=== PATIENT | female | born 1990 | race Caucasian/White ===

== ENCOUNTER → 2017-12-02 09:59 | Outpatient (CLI) | payer OTHER, SELFPAY ==
[2017-12-02 10:42] LABS: Absolute Lymphocyte Count 1.75 X10^3/ul (0.83-4.51); Absolute Neutrophil Count 7.6 X10^3/uL (2.0-7.7); Basophil# 0.02 X10^3/uL; Basophil% 0.2 % (0-1); Hematocrit 44.2 % (37-47); Hemoglobin 15.1 g/dl (12.0-15.0); Lymphocyte # 1.75 X10^3/ul (4.0); Lymphocyte % 17.2 % (19-41); Mean Corp Hgb Conc 34.2 g/gl (32-36); Mean Corpuscular Hgb 31.5 pg (27.0-32.0); Mean Corpuscular Volume 92.1 fL (81-99); Mean Platelet Vol. 10.4 fl (6.2-12.0); Monocyte# 0.71 X10^3/uL; Neutrophil # 7.58 X10^3/uL (2.7-7.7); Neutrophil % 74.3 % (47-70); Platelet Count 241 K/mm3 (150-450); RBC Distribution Width CV 12.6 % (11.6-14.6); RBC Distribution Width SD 41.5 fl (35.1-43.9); White Blood Count 10.2 K/mm3 (4.4-11.0)
[2017-12-02 10:43] LABS: POSITIVE COUNT NO; POSITIVE DIFFERENTIAL NO; POSITIVE MORPHOLOGY NO
[2017-12-02 11:53] LABS: HIV - WCH Non-Reactive (Nonreactive)
[2017-12-02 17:08] LABS: Chlamydia Trachomatis by PCR Negative (Negative); Neisserai gonorrhoeae by PCR Negative (Negative); Probe Check PASS; Sample Adequacy Control PASS; Specimen Processing Control PASS
[2017-12-03 09:23] LABS: HEPATITIS B SURFACE AG Negative (Negative)
[2017-12-06 03:11] LABS: Rapid Plasmin Reagin (RPR) NONREACTIVE (NONREACTIVE)
== END ==
PROVIDERS: Family Provider Family Medicine; PCP Family Medicine; Visit Provider Obstetrics & Gynecology
DX: Z34.90 Encounter for supervision of normal pregnancy, unspecified, unspecified trimester (principal)
CPT/HCPCS: 36415; 85025; 86592; 86703; 86762; 86850; 86900; 87086; 87088; 87340; 87491; 87591

== ENCOUNTER → 2018-01-13 18:02 | Outpatient (CLI) | payer OTHER, SELFPAY ==
[2018-01-13 18:31] LABS: Protein, Urine (Random) < 6.0 mg/dL (<11.9); Protein:Creat Ratio 130 mg/g CRE (0-200)
== END ==
PROVIDERS: Family Provider Family Medicine; PCP Family Medicine; Visit Provider Obstetrics & Gynecology
DX: I10 Essential (primary) hypertension (principal)
CPT/HCPCS: 82570; 84156

== ENCOUNTER → 2018-01-28 17:31 | Outpatient (CLI) | payer OTHER, SELFPAY | PROVIDERS: Family Provider Family Medicine; PCP Family Medicine; Visit Provider Obstetrics & Gynecology | DX: N89.8 Other specified noninflammatory disorders of vagina (principal) | CPT/HCPCS: 87070; 87205 ==

== ENCOUNTER → 2018-02-25 12:10 | Outpatient (CLI) | payer OTHER, SELFPAY ==
--- NOTE | 2018-02-25 12:11 | US_ITS ---
STUDY: SECOND AND THIRD TRIMESTER OBSTETRICAL ULTRASOUND REASON FOR EXAM: Female, 27 years old. Complete 2nd trimester obstetrical ultrasound with anatomy survey and biometrics LMP: 10/08/2017. GA (LMP) 20 week 0 day with MARLON (LMP) 07/15/2018. TECHNIQUE: Transabdominal complete ultrasound. PRIOR ULTRASOUND: None. FINDINGS: Single live intrauterine gestation in breech presentation with cardiac rate 136 bpm and normal amniotic fluid index with a deepest vertical pocket of 6.1 cm. Cervical length is 3.5 cm, closed. Placenta is anterior not low-lying, grade 0. Survey of the adnexa reveals no acute abnormalities. BIOMETRY: Measurement and centimeters. BPD: 4.24: 18 weeks, 6 days HC: 16.68: 19 weeks, 3 days AC: 14.98: 20 weeks, 2 days FL: 3.2: 20 weeks, 0 days CI: 70% FL/BPD: 75% FL/AC: 21% HC/AC: age by current US: 19 weeks, 5 days. MARLON by current US: 07/17/2018. Estimated weight: 325 grams, +/- 48 grams, 44 %. ANATOMY: The anatomy survey is complete and considered satisfactory. Gender: Not determined Cranium: Normal lateral ventricles. Normal choroid plexus. Normal cerebellum. Normal cisterna magna. Normal face, nose and lips. Chest: Normal 4-chamber heart. Abdomen/Pelvis: Normal diaphragm. Normal stomach. Normal abdominal wall. Normal cord insertion. Normal 3 vessel cord. Normal kidneys. Normal bladder. Spine: Normal cervical spine. Normal thoracic spine. Normal lumbar spine. Normal sacrum. Extremities: Normal bilateral upper extremities. Normal bilateral lower extremities. US/OB Anatomy Scan IMPRESSION: Single live intrauterine gestation. No acute or maternal abnormality is evident. Satisfactory and normal anatomic survey. Ultrasound age 19 week 5 day gestation, with MARLON 07/17/2018. Closely concordant with expected dates. Electronically Signed: Marko Hill, at 18:27 EDT Tel , Service support ,
== END ==
PROVIDERS: Family Provider Family Medicine; PCP Family Medicine; Visit Provider Obstetrics & Gynecology
DX: Z34.01 Encounter for supervision of normal first pregnancy, first trimester (principal)
CPT/HCPCS: 76805

== ENCOUNTER → 2018-04-24 11:57 | Outpatient (CLI) | payer OTHER, SELFPAY ==
[2018-04-24 13:04] LABS: Absolute Neutrophil Count 9.6 X10^3/uL (2.0-7.7); Basophil# 0.05 X10^3/uL; Basophil% 0.4 % (0-1); Eosinophil# 0.22 X10^3/uL; Eosinophils% 1.6 % (0-5); Hematocrit 39.1 % (37-47); Hemoglobin 13.1 g/dl (12.0-15.0); Lymphocyte % 17.8 % (19-41); Mean Corp Hgb Conc 33.5 g/gl (32-36); Mean Corpuscular Hgb 31.4 pg (27.0-32.0); Mean Corpuscular Volume 93.8 fL (81-99); Mean Platelet Vol. 9.9 fl (6.2-12.0); Monocyte# 0.93 X10^3/uL; Monocyte% 6.9 % (0-10); Neutrophil # 9.58 X10^3/uL (2.7-7.7); Neutrophil % 70.8 % (47-70); Platelet Count 249 K/mm3 (150-450); RBC Distribution Width CV 12.9 % (11.6-14.6); Red Blood Count 4.17 M/mm3 (4.2-5.4); White Blood Count 13.5 K/mm3 (4.4-11.0)
[2018-04-24 13:07] LABS: POSITIVE COUNT YES; POSITIVE DIFFERENTIAL NO; POSITIVE MORPHOLOGY YES
[2018-04-24 13:24] LABS: Glucose Challenge Gest 1H 50g 74 mg/dL (70-140)
[2018-04-25 15:19] LABS: Pathologist Review Reviewed
== END ==
PROVIDERS: Nurse Practitioner Women's Health; Family Provider Family Medicine; PCP Family Medicine; Referring Provider Obstetrics & Gynecology; Visit Provider Obstetrics & Gynecology
DX: Z34.01 Encounter for supervision of normal first pregnancy, first trimester (principal)
CPT/HCPCS: 36415; 82950; 85025

== ENCOUNTER → 2018-06-18 16:54 | Outpatient (CLI) | payer OTHER, SELFPAY ==
[2018-06-18 08:47] VITALS: BMI 34.8
--- OUTSIDE RECORDS SUMMARY | 2018-08-14 03:05 | XMS RPT_ITS ---
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 09/09/2017 Secondary NOT GIVENUNK [place] Insurance:SELF PAY [facility] Number: Effective Repository Date:2017-09-09
== END ==
PROVIDERS: Family Provider Family Medicine; PCP Family Medicine; Referring Provider Obstetrics & Gynecology; Visit Provider Obstetrics & Gynecology
DX: Z34.90 Encounter for supervision of normal pregnancy, unspecified, unspecified trimester (principal)
CPT/HCPCS: 87081

== ENCOUNTER 2018-07-21 08:35 | Inpatient (IN) | payer OTHER, SELFPAY ==
[2018-06-18 08:47] VITALS: BMI 34.8
[2018-07-18 09:27] VITALS: BMI 34.8
[2018-07-21 08:29] VITALS: BMI 36.2
[2018-07-21 08:35] LABS: ROM Internal Control Test YES-OK TO RESULT pt. (Internal QC); ROM Patient Test POSITIVE (Negative)
[2018-07-21 10:01] LABS: Hematocrit 42.5 % (37-47); Mean Corp Hgb Conc 32.9 g/gl (32-36); Mean Corpuscular Hgb 30.4 pg (27.0-32.0); Mean Corpuscular Volume 92.4 fL (81-99); Mean Platelet Vol. 9.5 fl (6.2-12.0); Platelet Count 244 K/mm3 (150-450); RBC Distribution Width CV 14.2 % (11.6-14.6); RBC Distribution Width SD 48.1 fl (35.1-43.9); White Blood Count 15.3 K/mm3 (4.4-11.0)
[2018-07-21 10:02] LABS: Scan Indicated on CBC? Y/N NO
[2018-07-21] MEDS: Lactated Ringers 1,000 ML 50 ML IV (10:25)
[2018-07-21] MEDS: Oxytocin 30 units/NS 500 ml 30 UNITS/500 ML IV.SOLN IV (10:59)
[2018-07-21] MEDS: fentaNYL-bupivacaine (epidural) 100 ML BAG EPIDURAL (12:34)
--- NOTE | 2018-07-21 14:34 | PCM.HP.OB ---
- Problem List (1) PROM (premature rupture of membranes) Status: Acute (2) Status: Acute Qualifiers: Comment: anatomy scan normal. (3) Supervision of normal Status: Acute Qualifiers: Comment: PRR MARLON 07/16/18 [place]; declines genetic screen History Date of Admission: 07/21/18 Final MARLON: 07/16/18 Gestational age: 40 Weeks and 5 Days History of this : This is a 27 year-old, at 40 weeks gestational age presents with SROM clear fluid this morning but minimal contractions. she has had some bloody show Medical History: Medical History (Last Reviewed 07/18/18 @ 09:27 by Meeta Rasheed) left achilles tendon tear Surgical History: Surgical History (Last Reviewed 07/18/18 @ 09:27 by Meeta Rasheed) S/P tonsillectomy Z90.89 left achilles tendon repair Allergies No Known Allergies Allergy (Verified 07/21/18 08:32) Home Medications: Home Medications vitamin,calcium,dqjvkrln-bxxa-dtaxg acid tablet 1 tab PO QDAY 12/02/17 Smoking Status: Never smoker Alcohol: None Number of Fetus(es): 1 Heart Tracin moderate variability reactive no decels cat I TOCO Analysis: irregular History Past Pregnancies: Past Pregnancies primigravid Labs: Mom's Labs & Results 07/21/18 07/21/18 07/21/18 08:20 09:46 09:46 WBC 15.3 H RBC 4.60 Hgb 14.0 Hct 42.5 MCV 92.4 MCH 30.4 MCHC 32.9 RDW 14.2 RDW Differential 48.1 H Plt Count 244 MPV 9.5 Vag Amniotic Fld Detect POSITIVE H Blood Type A POSITIVE Antibody Screen NEGATIVE Course Did the patient receive Yes care? Labs Blood Type: A RH: POSITIVE RPR/VDRL/Syphilis Nonreactive Rubella status Immune HbSAg Negative Date Done: 12/02/17 Chlamydia Negative Gonorrhea Negative HIV/AIDS Non-Reactive Group B Strep: Negative Current Obstetrical History Gestational Diabetes No Incompetent Cervix No Infertility No IUGR No Macrosomia No Hypertension/Pre-eclampsia No Placenta Previa/Abruption No PTL/PROM No Uterine anomaly No Oligohydramnios No Polyhydramnios No Multiple gestation No Past Medical History Asthma No Diabetes No Hypertension No Heart disease No Mitral valve prolapse No Neurologic/Seizure disorder/ No Migraines Kidney disease No Liver disease No Varicosities No Clotting disorders/Hx of DVT No Thyroid Dysfunction No Other medical diseases No Psychiatric disorders No Major trauma No Abnormal PAP smear No Sleep apnea No Mammogram in the last 2 years No Social History Marital Status: Alleged father [place] Hx Smoking No Smoking Status Never smoker Expected Delivery Method: Spontaneous Vaginal Review of Systems Constitutional: Denies: Fever, Malaise Eyes: Denies: Blurred vision, Vision Change HEENT: Denies: Head Aches, Visual Changes Cardiovascular: Denies: Chest Pain, Palpitations Respiratory: Denies: Cough, Shortness of Breath, Wheezing Gastrointestinal: Denies: Abdominal Pain, Diarrhea, Nausea, Vomiting Genitourinary: Denies: Dysuria, Hematuria Musculoskeletal: Denies: Joint Pain, Muscle pain Skin: Denies: Lesions, Rash Neurological: Denies: Blurred vision, Focal weakness, Headaches Psychiatric: Denies: Anxiety, Depression Endocrine: Denies: Heat/ Cold Intolerance Hematologic/ Lymphatic: Denies: Easy Bruising, Easy Bleeding Physical Exam General: Alert, Cooperative, No apparent distress HEENT: Atraumatic, Normocephalic. Negative for: Thyromegaly, Lymphadenopathy Cardiovascular: Regular rate Lungs: Normal air movement Abdomen: Soft, Non Tender, Gravid Neurological: Deep Tendon Reflexes 2+/4 and Symmetrical, Neuro grossly intact. Negative for: Clonus [employer]: Normal external genitalia. Negative for: Vulvar lesions Estimated gestational size: Appropriate for gestational size Presentation: Cephalic Assessment/Plan All Active Problems (Last Reviewed 07/18/18 @ 09:27 by Meeta Rasheed) PROM (premature rupture of membranes) (Acute) (Acute) Supervision of normal (Acute) This is a 27 year-old, at 40 weeks gestational age presents SROM Patient presents with SROM, minimal contractions recommend Pitocin since no cervical change in 4 hours. Pain management: Plans epidural needed. GBS negative. Management of any complications: None I have reviewed the [facility] and made any clinically relevant updates.
--- NOTE | 2018-07-21 14:37 | HP.PCM_ITS ---
- Problem List (1) PROM (premature rupture of membranes) Status: Acute (2) Status: Acute Qualifiers: Comment: anatomy scan normal. (3) Supervision of normal Status: Acute Qualifiers: Comment: PRR MARLON 07/16/18 [place]; declines genetic screen History Date of Admission: 07/21/18 Final MARLON: 07/16/18 Gestational age: 40 Weeks and 5 Days History of this : This is a 27 year-old, at 40 weeks gestational age presents with SROM clear fluid this morning but minimal contractions. she has had some bloody show Medical History: Medical History (Last Reviewed 07/18/18 @ 09:27 by Meeta Rasheed) left achilles tendon tear Surgical History: Surgical History (Last Reviewed 07/18/18 @ 09:27 by Meeta Rasheed) S/P tonsillectomy Z90.89 left achilles tendon repair Allergies No Known Allergies Allergy (Verified 07/21/18 08:32) Home Medications: Home Medications vitamin,calcium,xnyttckh-saro-lrfko acid tablet 1 tab PO QDAY 12/02/17 Smoking Status: Never smoker Alcohol: None Number of Fetus(es): 1 Heart Tracin moderate variability reactive no decels cat I TOCO Analysis: irregular History Past Pregnancies: Past Pregnancies primigravid Labs: Mom's Labs & Results 07/21/18 07/21/18 07/21/18 08:20 09:46 09:46 WBC 15.3 H RBC 4.60 Hgb 14.0 Hct 42.5 MCV 92.4 MCH 30.4 MCHC 32.9 RDW 14.2 RDW Differential 48.1 H Plt Count 244 MPV 9.5 Vag Amniotic Fld Detect POSITIVE H Blood Type A POSITIVE Antibody Screen NEGATIVE Course Did the patient receive Yes care? Labs Blood Type: A RH: POSITIVE RPR/VDRL/Syphilis Nonreactive Rubella status Immune HbSAg Negative Date Done: 12/02/17 Chlamydia Negative Gonorrhea Negative HIV/AIDS Non-Reactive Group B Strep: Negative Current Obstetrical History Gestational Diabetes No Incompetent Cervix No Infertility No IUGR No Macrosomia No Hypertension/Pre-eclampsia No Placenta Previa/Abruption No PTL/PROM No Uterine anomaly No Oligohydramnios No Polyhydramnios No Multiple gestation No Past Medical History Asthma No Diabetes No Hypertension No Heart disease No Mitral valve prolapse No Neurologic/Seizure disorder/ No Migraines Kidney disease No Liver disease No Varicosities No Clotting disorders/Hx of DVT No Thyroid Dysfunction No Other medical diseases No Psychiatric disorders No Major trauma No Abnormal PAP smear No Sleep apnea No Mammogram in the last 2 years No Social History Marital Status: Alleged father [place] Hx Smoking No Smoking Status Never smoker Expected Delivery Method: Spontaneous Vaginal Review of Systems Constitutional: Denies: Fever, Malaise Eyes: Denies: Blurred vision, Vision Change HEENT: Denies: Head Aches, Visual Changes Cardiovascular: Denies: Chest Pain, Palpitations Respiratory: Denies: Cough, Shortness of Breath, Wheezing Gastrointestinal: Denies: Abdominal Pain, Diarrhea, Nausea, Vomiting Genitourinary: Denies: Dysuria, Hematuria Musculoskeletal: Denies: Joint Pain, Muscle pain Skin: Denies: Lesions, Rash Neurological: Denies: Blurred vision, Focal weakness, Headaches Psychiatric: Denies: Anxiety, Depression Endocrine: Denies: Heat/ Cold Intolerance Hematologic/ Lymphatic: Denies: Easy Bruising, Easy Bleeding Physical Exam General: Alert, Cooperative, No apparent distress HEENT: Atraumatic, Normocephalic. Negative for: Thyromegaly, Lymphadenopathy Cardiovascular: Regular rate Lungs: Normal air movement Abdomen: Soft, Non Tender, Gravid Neurological: Deep Tendon Reflexes 2+/4 and Symmetrical, Neuro grossly intact. Negative for: Clonus [employer]: Normal external genitalia. Negative for: Vulvar lesions Estimated gestational size: Appropriate for gestational size Presentation: Cephalic Assessment/Plan All Active Problems (Last Reviewed 07/18/18 @ 09:27 by Meeta Rasheed) PROM (premature rupture of membranes) (Acute) (Acute) Supervision of normal (Acute) This is a 27 year-old, at 40 weeks gestational age presents SROM Patient presents with SROM, minimal contractions recommend Pitocin since no ce rvical change in 4 hours. Pain management: Plans epidural needed. GBS negative. Management of any complications: None I have reviewed the [facility] and made any clinically relevant updates.
--- NOTE | 2018-07-21 15:11 | PCM.OB.VAG ---
- Problem List (1) PROM (premature rupture of membranes) Status: Acute (2) Status: Acute Qualifiers: Comment: anatomy scan normal. (3) Supervision of normal Status: Acute Qualifiers: Comment: PRR MARLON 07/16/18 [place]; declines genetic screen Vaginal Delivery Amniotic Fluid Description: Clear Final MARLON: 07/16/18 Gestational age: 40 Weeks and 6 Days Date of Procedure: 07/21/18 Post-Operative Diagnosis: In active labor SROM Surgery/ Procedure Performed: Spontaneous Vaginal Delivery Type of Anesthesia: Epidural Description of Procedure: Patient began pushing and delivered the head in the EVA presentation. The head was delivered atraumatically and a loose nuchal x1 was identified and easily reduced over the infant's head. The anterior and posterior shoulders delivered without complication followed by the rest of the and the was placed on the maternal abdomen. Delayed cord clamping was employed for approximately 60 seconds. Cord was clamped and cut and gentle traction was applied to the cord and the placenta delivered spontaneously immediately following it was noted to be intact with three-vessel cord. The perineum and vagina were inspected and noted to have a small second degree perineal laceration that was repaired in the usual fashion with 3-0 Vicryl repeat. EBL was 300 cc. Patient and infant tolerated delivery well. Presentation: EVA Placental Delivery Description: Spontaneous Placenta Disposition: [facility] Cord Vessel Description: 3 Vessels Cord Entanglement: Around neck x 1, loose Estimated Blood Loss: 300 Infant A gender: Female Episiotomy Description: None Laceration: Perineal Extension/lac, 2nd degree Medications given after delivery: IV Pitocin Complications: None
[2018-07-21] MEDS: Oxytocin 30 units/NS 500 ml 30 UNITS/500 ML IV.SOLN 334 UNITS IV (15:25)
[2018-07-21] MEDS: Oxytocin 30 units/NS 500 ml 30 UNITS/500 ML IV.SOLN 167 UNITS IV (15:55)
[2018-07-21] MEDS: Naproxen 250 MG Tablet PO (19:00)
[2018-07-21 21:00] VITALS: BP 125/78; PULSE 97; RESP 16; TEMP 36.6; O2SAT 100
[2018-07-22 00:18] VITALS: BP 122/71; PULSE 85; RESP 16; TEMP 36.4; O2SAT 97
[2018-07-22 04:36] VITALS: BP 117/66; PULSE 96; RESP 16; TEMP 36.4; O2SAT 97
[2018-07-22 08:00] VITALS: BP 146/92; PULSE 86; RESP 18; TEMP 36.5
--- NOTE | 2018-07-22 11:24 | PCM.PN.OB ---
Patient Problems: Active and Suspected Problems (Last Reviewed 07/18/18 @ 09:27 by Meeta Rasheed) PROM (premature rupture of membranes) (Acute) Subjective: doing well no complaints - Physical Exam General: Alert, Oriented x3 Vital Signs Temp Pulse Resp BP Pulse Ox 97.5 F L 96 16 117/66 97 07/22/18 04:36 07/22/18 04:36 07/22/18 04:36 07/22/18 04:36 07/22/18 04:36 Oxygen Delivery Method Room Air Weight: 245 lb 6.4 oz Body Mass Index (BMI) 36.2 Intake and Output for Last 24 Hours 07/20/18 07/21/18 07/22/18 23:59 23:59 23:59 Intake Total 100 / 100 Balance 100 / 100 Medical Necessity - Tobacco Use Smoking Status: Never smoker Assessment/Plan All Active Problems (Last Reviewed 07/18/18 @ 09:27 by Meeta Rasheed) PROM (premature rupture of membranes) (Acute) (Acute) Supervision of normal (Acute) s/p PPD # 1 1. routine post delivery care 2. breast feeding- support given 3. rh positive 4. rubella immune
[2018-07-22 12:00] VITALS: BP 112/69; PULSE 73; RESP 18; TEMP 36.4
[2018-07-22 15:58] VITALS: BP 131/80; PULSE 81; RESP 16; TEMP 36.7
[2018-07-22] MEDS: Naproxen 250 MG Tablet PO (19:25)
[2018-07-22 19:28] VITALS: BP 137/70; PULSE 89; RESP 18; TEMP 36.9; O2SAT 97
[2018-07-23 02:27] VITALS: BP 136/78; PULSE 72; RESP 16; TEMP 36.7; O2SAT 97
[2018-07-23] MEDS: Senna/Docusate Sodium 1 Tablet PO (07:02)
[2018-07-23] MEDS: Naproxen 250 MG Tablet PO (07:02)
--- NOTE | 2018-07-23 07:48 | PCM.PN.OB ---
Patient Problems: Active and Suspected Problems (Last Reviewed 07/18/18 @ 09:27 by Meeta Rasheed) PROM (premature rupture of membranes) (Acute) Subjective: NO CP, SOB. Doing well. Plans home today - Physical Exam General: Alert, Oriented x3 Abdomen: Soft, Non Tender, Non-Distended, - - FF below U Vital Signs Temp Pulse Resp BP Pulse Ox 98.1 F 72 16 136/78 H 97 07/23/18 02:27 07/23/18 02:27 07/23/18 02:27 07/23/18 02:27 07/23/18 02:27 Oxygen Delivery Method Room Air Weight: 245 lb 6.4 oz Body Mass Index (BMI) 36.2 Intake and Output for Last 24 Hours 07/21/18 07/22/18 07/23/18 23:59 23:59 23:59 Intake Total 100 / 100 Balance 100 / 100 Medical Necessity - Tobacco Use Smoking Status: Never smoker Assessment/Plan All Active Problems (Last Reviewed 07/18/18 @ 09:27 by Meeta Rasheed) PROM (premature rupture of membranes) (Acute) (Acute) Supervision of normal (Acute) PPD #2: routine care; breast feeding- consult before discharge; Home today.
--- NOTE | 2018-07-23 07:52 | DCINST_ITS ---
Additional Instructions: If you experience any of the following, contact your healthcare provider. * Bleeding that soaks a pad every hour for 2 hours * Fever 100.4 or higher * Unrelieved incision or abdominal pain * Swelling, redness, discharge or bleeding from your incision or episiotomy site * Your incision begins to separate * Problems urinating (including inability to urinate or burning while urinating). * Visual changes * Severe headache * Flu-like symptoms * Pain or redness in one of both of your breasts * Pain, warmth, tenderness or swelling in your legs, especially the calf area * Frequent nausea and vomiting * Symptoms of depression or anxiety If you experience any of the following, call 911 or go to the nearest Emergency Room. * Chest pain * Problems breathing * Seizure activity * Partial or complete paralysis of a body part, slurred speech, weakness or drooping of the face, or a sudden inability to walk or hold your balance Allergies/Adverse Reactions: Allergies No Known Allergies Allergy (Verified 07/21/18 08:32) Medications to take at Discharge vitamin,calcium,rjkomcyy-yyit-byeuf acid tablet 1 tab PO QDAY 12/02/17 Primary Care Physician: Prema Van PA-C [Primary Care Provider] - Test Results: Test results from this visit will be discussed in further detail at your follow- up appointment, if applicable.
--- NOTE | 2018-07-23 07:52 | PCM.DCVAG ---
Additional Instructions: If you experience any of the following, contact your healthcare provider. Bleeding that soaks a pad every hour for 2 hours Fever 100.4 or higher Unrelieved incision or abdominal pain Swelling, redness, discharge or bleeding from your incision or episiotomy site Your incision begins to separate Problems urinating (including inability to urinate or burning while urinating). Visual changes Severe headache Flu-like symptoms Pain or redness in one of both of your breasts Pain, warmth, tenderness or swelling in your legs, especially the calf area Frequent nausea and vomiting Symptoms of depression or anxiety If you experience any of the following, call 911 or go to the nearest Emergency Room. Chest pain Problems breathing Seizure activity Partial or complete paralysis of a body part, slurred speech, weakness or drooping of the face, or a sudden inability to walk or hold your balance Allergies/Adverse Reactions: Allergies No Known Allergies Allergy (Verified 07/21/18 08:32) Medications to take at Discharge vitamin,calcium,tvzmilkj-zfhq-yvbyw acid tablet 1 tab PO QDAY 12/02/17 Primary Care Physician: Prema Van PA-C [Primary Care Provider] - Test Results: Test results from this visit will be discussed in further detail at your follow-up appointment, if applicable.
[2018-07-23 08:00] VITALS: BP 111/71; PULSE 74; RESP 16; TEMP 36.6
[2018-07-23 13:06] VITALS: BP 119/77; PULSE 74; RESP 20; TEMP 37.4
== END 2018-07-23 14:30 | disposition home or self-care (01) | DRG 807 ==
LOC: WPOUT 08:38 → WP 08:41
PROVIDERS: Admitting Provider Obstetrics & Gynecology; Family Provider Family Medicine; PCP Family Medicine; Referring Provider Obstetrics & Gynecology; Visit Provider Obstetrics & Gynecology
DX: O48.0 Post-term pregnancy (principal); Z37.0 Single live birth; Z3A.40 40 weeks gestation of pregnancy; O69.81X0 Labor and delivery complicated by cord around neck, without compression, not applicable or unspecified; O42.12 Full-term premature rupture of membranes, onset of labor more than 24 hours following rupture; O70.1 Second degree perineal laceration during delivery
CPT/HCPCS: 59025; 59050; 84112; 85027; 86850; 86900; 99218; J7120; G0378

== ENCOUNTER 2018-07-30 15:18 | Outpatient (CLI) | payer OTHER, SELFPAY | END 2018-07-30 16:30 | disposition home or self-care (01) | LOC: LABSPEC 15:19 → WPOUT 15:19 → WP 15:19 | PROVIDERS: Family Provider Family Medicine; PCP Family Medicine; Referring Provider Obstetrics & Gynecology; Visit Provider Obstetrics & Gynecology | DX: O92.79 Other disorders of lactation (principal) | CPT/HCPCS: 96152 ==

== ENCOUNTER → 2019-11-02 | Outpatient (CLI) | payer OTHER, SELFPAY ==
[2018-09-01 15:30] VITALS: BMI 36.2
[2019-11-02 10:55] LABS: hCG Titer Quant., Serum 44 mIU/mL (1-3)
== END | disposition home or self-care (01) ==
LOC: LAB 09:16
PROVIDERS: PCP Family Medicine; Referring Provider Nurse Practitioner Women's Health; Visit Provider Nurse Practitioner Women's Health
DX: O20.0 Threatened abortion (principal)
CPT/HCPCS: 36415; 84702

== ENCOUNTER → 2019-11-04 06:59 | Outpatient (CLI) | payer OTHER, SELFPAY ==
[2018-09-01 15:30] VITALS: BMI 36.2
[2019-11-04 08:33] LABS: hCG Titer Quant., Serum 17 mIU/mL (1-3)
== END ==
PROVIDERS: PCP Family Medicine; Referring Provider Nurse Practitioner Women's Health; Visit Provider Nurse Practitioner Women's Health
DX: O20.0 Threatened abortion (principal); Z3A.00 Weeks of gestation of pregnancy not specified
CPT/HCPCS: 36415; 84702

== ENCOUNTER → 2019-11-18 | Outpatient (CLI) | payer OTHER, SELFPAY ==
[2018-09-01 15:30] VITALS: BMI 36.2
[2019-11-18 09:33] LABS: hCG Titer Quant., Serum < 1 mIU/mL (1-3)
== END | disposition home or self-care (01) ==
LOC: LAB 08:54
PROVIDERS: PCP Family Medicine; Referring Provider Obstetrics & Gynecology; Visit Provider Obstetrics & Gynecology
DX: O03.9 Complete or unspecified spontaneous abortion without complication (principal)
CPT/HCPCS: 36415; 84702

== ENCOUNTER → 2020-05-26 10:50 | Outpatient (CLI) | payer BC, SELFPAY ==
[2020-05-26 09:46] VITALS: BMI 27.6
[2020-05-26 11:29] LABS: Absolute Lymphocyte Count 2.55 X10^3/uL (0.83-4.51); Absolute Neutrophil Count 8.2 X10^3/uL (2.0-7.7); Basophil# 0.03 X10^3/uL; Basophil% 0.3 % (0-1); Eosinophil# 0.15 X10^3/uL; Eosinophils% 1.3 % (0-5); Hematocrit 43.7 % (37-47); Hemoglobin 14.5 g/dL (12.0-15.0); Lymphocyte # 2.55 X10^3/ul (4.0); Mean Corp Hgb Conc 33.2 g/dL (32-36); Mean Corpuscular Hgb 30.2 pg (27.0-32.0); Mean Platelet Vol. 10.3 fl (6.2-12.0); Monocyte# 0.66 X10^3/uL; Monocyte% 5.7 % (0-10); NRBC Flagged by Analyzer 0 % (0-5); Neutrophil # 8.18 X10^3/uL (2.7-7.7); Neutrophil % 70.4 % (47-70); Platelet Count 272 K/mm3 (150-450); RBC Distribution Width CV 12.1 % (11.6-14.6); RBC Distribution Width SD 40.5 fl (35.1-43.9); White Blood Count 11.6 K/mm3 (4.4-11.0)
[2020-05-26 13:15] LABS: Amphetamine Urine VISTA NEGATIVE (<1000 ng/mL); Barbiturate Urine VISTA NEGATIVE (< 200 ng/mL); Benzodiazepine Urine VISTA NEGATIVE (< 200 ng/mL); Cocaine Urine VISTA NEGATIVE (< 300 ng/mL); Ecstacy Urine VISTA NEGATIVE (< 500 ng/mL); Methadone Urine VISTA NEGATIVE (< 300 ng/mL); PCP Urine VISTA NEGATIVE (< 25 ng/mL); THC Urine VISTA NEGATIVE (< 50 ng/mL); Vista UDS pH Range 6
[2020-05-26 14:49] LABS: HIV - WCH Non-Reactive (Nonreactive); Hepatitis B Surface Antigen Non-Reactive (Nonreactive); Hepatitis C Antibody Non-Reactive (Nonreactive)
[2020-05-28 03:07] LABS: Chlamydia By Nucleic Acid AMP Negative (Negative)
[2020-05-28 10:56] LABS: Gonococcus By Nucleic Acid AMP Negative (Negative)
[2020-06-02 01:20] LABS: Rapid Plasmin Reagin (RPR) NONREACTIVE (NONREACTIVE)
== END ==
PROVIDERS: PCP Family Medicine; Referring Provider Obstetrics & Gynecology; Visit Provider Obstetrics & Gynecology
DX: Z34.80 Encounter for supervision of other normal pregnancy, unspecified trimester (principal)
CPT/HCPCS: 36415; 80307; 85025; 86592; 86703; 86803; 86850; 86900; 86901; 87086; 87340; 87491; 87591

== ENCOUNTER → 2020-08-18 08:42 | Outpatient (CLI) | payer BC, SELFPAY ==
[2020-07-18 13:46] VITALS: BMI 27.6
[2020-07-26 09:08] VITALS: BMI 28.6
--- NOTE | 2020-08-18 08:45 | US_ITS ---
STUDY: SECOND AND THIRD TRIMESTER OBSTETRICAL ULTRASOUND REASON FOR EXAM: Female, 29 years old anatomy LMP: 01/03/2021 TECHNIQUE: Transabdominal TECHNICAL QUALITY: Adequate. PRIOR ULTRASOUND: None. FINDINGS: There is a single intrauterine fetus. The fetus is in a breech presentation. There is demonstrated cardiac activity with a heart rate of 136 bpm. There is a normal amniotic fluid volume. The largest amniotic fluid pocket measures 3.2 cm x 5.6 cm. The amniotic fluid index (LUIS ALBERTO) is within normal limits. The placenta is anterior in location and is not low lying. There are Grade 1 placental changes. The cervix measures 4.1 cm in length. The bilateral adnexal regions are normal. BIOMETRY: BPD: 4.6 cm: 19 weeks, 6 days HC: 17.5 cm: 19 weeks, 6 days AC: 15.1 cm: 20 weeks, 2 days FL: 3.2 cm: 20 weeks, 0 days CI: 76% FL/BPD: 70% FL/HC: FL/AC: 21% HC/AC: 1.16 age by current US: 19 weeks, 6 days. MARLON by current US: 12/27/2020. Estimated weight: 337 grams, +/- 50 grams, 30 %. Age by LMP: 20 weeks, 6 days. MARLON by LMP: 01/03/2021. ANATOMY: Cranium: Normal lateral ventricles. Normal choroid plexus. Normal cerebellum. Normal cisterna magna. Normal face, nose and lips. Chest: The heart is non-visualized. Abdomen/Pelvis: Normal diaphragm. Normal stomach. Normal abdominal wall. Normal cord insertion. Normal 3 vessel cord. Normal kidneys. Normal bladder. Spine: Limited visualization due to the positioning. Extremities: Normal bilateral upper extremities. Normal bilateral lower extremities. US/OB Anatomy Scan IMPRESSION: Single live intrauterine gestation with a mean gestational age of 19 weeks and 6 days. Limited visualization of the spine due to positioning as well as the four-chamber view of the heart. Electronically Signed: Patel Rodas MD at 12:40 EST , Service support ,
== END ==
PROVIDERS: PCP Family Medicine; Referring Provider Obstetrics & Gynecology; Visit Provider Obstetrics & Gynecology
DX: Z36.9 Encounter for antenatal screening, unspecified (principal)
CPT/HCPCS: 76805

== ENCOUNTER → 2020-09-02 07:31 | Outpatient (CLI) | payer BC, SELFPAY ==
[2020-07-26 09:08] VITALS: BMI 28.6
--- NOTE | 2020-09-02 08:03 | US_ITS ---
STUDY: SECOND AND THIRD TRIMESTER OBSTETRICAL ULTRASOUND - LIMITED REASON FOR EXAM: Female, 29 years old f/u anatomy LMP: 03/29/2020. PRIOR ULTRASOUND: Comparison is made with prior study dated 02/15/2021. TECHNIQUE: Transabdominal and Transvaginal TECHNICAL QUALITY: Adequate. FINDINGS: There is a single intrauterine fetus. The fetus is in a transverse lie with the head on the maternal right side. There is demonstrated cardiac activity with a heart rate of 131 bpm. There is a normal amniotic fluid volume. The largest amniotic fluid pocket measures 5 cm x 2.5 cm. The amniotic fluid index (LUIS ALBERTO) is within normal limits. The placenta is anterior with a complete previa. This is seen best on the transvaginal examination. There are Grade 0 placental changes. The cervix measures 5.4 cm in length. Four-chamber heart was visualized and is unremarkable. Imaging of the cervical, thoracic and lumbar spine was obtained. They are unremarkable. US/OB Limited (No Biometrics) IMPRESSION: There is evidence of anterior placenta previa. Best seen on the transvaginal examination. Electronically Signed: Patel Rodas MD at 9:30 EST , Service support ,
== END ==
PROVIDERS: PCP Family Medicine; Referring Provider Obstetrics & Gynecology; Visit Provider Obstetrics & Gynecology
DX: Z36.2 Encounter for other antenatal screening follow-up (principal)
CPT/HCPCS: 76815; 76817

== ENCOUNTER → 2020-10-11 07:39 | Outpatient (CLI) | payer BC, SELFPAY ==
[2020-09-02 10:15] VITALS: BMI 29.5
[2020-09-19 08:43] VITALS: BMI 29.5
--- NOTE | 2020-10-11 07:53 | US_ITS ---
STUDY: SECOND AND THIRD TRIMESTER OBSTETRICAL ULTRASOUND - LIMITED REASON FOR EXAM: Female, 29 years old placenta follow-up LMP: 03/29/2020. PRIOR ULTRASOUND: Comparison is made with prior study dated 09/02/2020. TECHNIQUE: Transabdominal and Transvaginal TECHNICAL QUALITY: Adequate. FINDINGS: There is a single intrauterine fetus. The fetus is in a cephalic presentation. There is demonstrated cardiac activity with a heart rate of 138 bpm. There is a normal amniotic fluid volume. The largest amniotic fluid pocket measures 5.5 cm. The amniotic fluid index (LUIS ALBERTO) is 12.8 cm. The placenta is anterior and low lying but not previa in location. There are Grade 2 placental changes. The cervix measures 4.3 cm in length. BIOMETRY: BPD: 7 cm: 28 weeks, 0 days HC: 25.9 cm: 28 weeks, 1 days AC: 23.7 cm: 27 weeks, 6 days FL: 5.3 cm: 28 weeks, 2 days Age by LMP: 28 weeks, 0 days. MARLON by LMP: 01/03/2021. age by prior US: 27 weeks, 4 days. MARLON by prior US: 01/06/2021. age by current US: 28 weeks, 0 days. MARLON by current US: 01/03/2021. Estimated weight: 1187 grams, +/- 178 grams, 44 percentile. US/OB Limited With Biometrics IMPRESSION: Single live uterine gestation with mean gestational age of 27 weeks and 4 days. The measurements obtained today fail with the normal expected range. Anterior low-lying placenta. Electronically Signed: Patel Rodas MD at 9:04 EDT , Service support ,
[2020-10-11 07:57] LABS: Absolute Lymphocyte Count 2.12 X10^3/uL (0.83-4.51); Absolute Neutrophil Count 7.2 X10^3/uL (2.0-7.7); Basophil# 0.04 X10^3/uL; Basophil% 0.4 % (0-1); Eosinophil# 0.17 X10^3/uL; Eosinophils% 1.6 % (0-5); Hematocrit 37.1 % (37-47); Hemoglobin 12.4 g/dL (12.0-15.0); Lymphocyte # 2.12 X10^3/ul (4.0); Lymphocyte % 20.5 % (19-41); Mean Corp Hgb Conc 33.4 g/dL (32-36); Mean Corpuscular Hgb 31.5 pg (27.0-32.0); Mean Corpuscular Volume 94.2 fL (81-99); Mean Platelet Vol. 9.2 fl (6.2-12.0); Monocyte# 0.65 X10^3/uL; Monocyte% 6.3 % (0-10); NRBC Flagged by Analyzer 0 % (0-5); Neutrophil # 7.17 X10^3/uL (2.7-7.7); Neutrophil % 69.3 % (47-70); Platelet Count 218 K/mm3 (150-450); RBC Distribution Width CV 13.5 % (11.6-14.6); RBC Distribution Width SD 45.8 fl (35.1-43.9); Red Blood Count 3.94 M/mm3 (4.2-5.4); White Blood Count 10.4 K/mm3 (4.4-11.0)
[2020-10-11 08:16] LABS: Glucose Challenge Gest 1H 50g 92 mg/dL (70-140)
[2020-10-11 08:29] LABS: Rubella IgG Reactive (Nonreactive)
== END ==
PROVIDERS: Nurse Practitioner Women's Health; PCP Family Medicine; Referring Provider Obstetrics & Gynecology; Visit Provider Obstetrics & Gynecology
DX: O44.02 Complete placenta previa NOS or without hemorrhage, second trimester (principal); Z01.84 Encounter for antibody response examination; Z3A.00 Weeks of gestation of pregnancy not specified
CPT/HCPCS: 36415; 76816; 76817; 82950; 85025; 86762

== ENCOUNTER → 2020-12-13 | Outpatient (CLI) | payer BC, SELFPAY ==
[2020-12-13 12:06] VITALS: BMI 30.1
== END | disposition home or self-care (01) ==
LOC: LABSPEC 12:59
PROVIDERS: PCP Family Medicine; Visit Provider Obstetrics & Gynecology
DX: Z34.80 Encounter for supervision of other normal pregnancy, unspecified trimester (principal)
CPT/HCPCS: 87081

== ENCOUNTER 2020-12-25 22:55 | Inpatient (IN) | payer BC, SELFPAY ==
[2020-12-21 11:46] VITALS: BMI 30.1
[2020-12-25 23:03] VITALS: BP 132/78; PULSE 77; PULSE 85; TEMP 37.2; O2SAT 99
[2020-12-25 23:06] VITALS: BMI 32.0
[2020-12-25] MEDS: Lactated Ringers 1,000 ML 50 ML IV (23:07)
[2020-12-25 23:33] LABS: Absolute Lymphocyte Count 2.45 X10^3/uL (0.83-4.51); Absolute Neutrophil Count 7.7 X10^3/uL (2.0-7.7); Basophil# 0.05 X10^3/uL; Basophil% 0.4 % (0-1); Eosinophils% 1.8 % (0-5); Hematocrit 39.2 % (37-47); Hemoglobin 12.9 g/dL (12.0-15.0); Lymphocyte # 2.45 X10^3/ul (0.83-4.51); Lymphocyte % 21.5 % (19-41); Mean Corp Hgb Conc 32.9 g/dL (32-36); Mean Corpuscular Hgb 30.6 pg (27.0-32.0); Mean Corpuscular Volume 93.1 fL (81-99); Mean Platelet Vol. 9.6 fl (6.2-12.0); Monocyte# 0.84 X10^3/uL; Monocyte% 7.4 % (0-10); NRBC Flagged by Analyzer 0 % (0-5); Neutrophil # 7.65 X10^3/uL (2.7-7.7); Neutrophil % 67.1 % (47-70); Platelet Count 249 K/mm3 (150-450); RBC Distribution Width CV 13.6 % (11.6-14.6); RBC Distribution Width SD 46.4 fl (35.1-43.9); Red Blood Count 4.21 M/mm3 (4.2-5.4); White Blood Count 11.4 K/mm3 (4.4-11.0)
[2020-12-26] VITALS (44 sets, daily range): BP systolic 95–130; BP diastolic 54–82; PULSE 60–99; RESP 16; TEMP 36.6–37.3; O2SAT 90–100
[2020-12-26] MEDS: Lactated Ringers 500 ML 999 ML IV ×3 (00:09→04:38)
--- NOTE | 2020-12-26 01:29 | HP.PCM.OB_ITS ---
HPI - General General Date of Admission: 12/25/20 HPI Narrative DANITA MCKAY, is a 30 F at 38 weeks who presents with rupture membranes Maternal Data Information MARLON Calculator Estimated Delivery Date Method Current WG Current Estimate 01/03/21 LMP (Certain) 38w 6d Other Estimates 01/04/21 Ultrasound #1 38w 5d [facility] Medical History (Updated 12/26/20 @ 01:[address] Jessie García MD) Complete left achilles tendon tear Placental abnormality Superficial varicosities Home Medications prenat.vits,frederick,ege-cnie-yhewf 1 tab PO QDAY 12/02/17 [History Last Taken 12/25/20 08:00] docusate sodium [Colace] 100 mg PO DAILY 12/25/20 [History Last Taken 12/25/20 08:00] Allergy/AdvReac Type Severity Reaction Status Date / Time No Known Allergies Allergy Verified 12/25/20 23:09 Family History Father Diabetes Hypertension Clotting disorder Mother Breast cancer Grandfather Heart disease Surgical History left achilles tendon repair S/P tonsillectomy Social History adopted: No household members: family housing: house number of children: 1 current occupational status: employed Smoking Status: Never smoker alcohol intake: current alcohol intake frequency: holidays/special occasions only substance use type: does not use caffeine: No what type of physical activity do you participate in: other details: crossfit frequency: 3-4 times per week seatbelt use: always do you feel safe at home: Yes 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 Date Name GA/Weeks Outcome Route Bth Weight Infant Gen Labor Lgth Anesthesia Del Locatn Provider FOB 07/21/18 [place] 41 live - full term 8lb 7oz Female 4-5 hours epidural [employer] [facility] OD Delivery Date: 07/21/18 no complications Antonette Jain Visit Details Expected Delivery Route/Plan Labor Preferences- CB/BF classes: no labor support person: [place] labor intervention preferences: [] pain management options preferred: epidural cut cord/dad catch: cord : yes PP control planned: reviewed options. discussed possible routes of delivery and associated risks: [] special requests: [] Plans covid status: vaccinated flu vaccine: yes tdap vaccine: given rhogam: na LARC form signed: yes movement and labor precautions reviewed. Problem list reviewed and updated with the most current plan of care details and appropriate orders placed. Relevant counseling for the gestational age provided. Continue routine care and follow up unless otherwise noted in visit notes/problem list details OB Flowsheet Initial Weight: Not Recorded Date -?-?-?-?-?-?-?-?-?-?-?-?- EGA Weight BP Urine Prot -?-?-?-?-?-?-?-?-?-?-?-?- Glucose FHR FuHt Pres Dilation -?-?-?-?-?-?-?-?-?-?-?-?- Effaced St Visit Note 05/26/20 -?-?-?-?-?-?-?-?-?-?-?-?- 8w 2d 187 lb 122/82 -?-?-?-?-?-?-?-?-?-?-?-?- 170 -?-?-?-?-?-?-?-?-?-?-?-?- GP - CRL 15mm co nsistent with LMP. No cramping or VB. 06/27/20 -?-?-?-?-?-?-?-?-?-?-?-?- 12w 6d 187 lb 8 oz 110/70 Nega tive -?-?-?-?-?-?-?-?-?-?-?-?- Negative 157 -?-?-?-?-?-?-?--?-?-?-?-?- GP - no cramping or bleeding. PRR. Anatomy scan ordered. GP - no cramping or bleeding . PRR - needs rubella. Anatomy scan ordered. 07/26/20 -?-?-?-?-?-?-?-?-?-?-?-?- 17w 0d 194 lb 130/80 Negative -?-?-?-?-?-?-?-?-?-?-?-?- Negative 140 -?-?-?-?-?-?-?-?-?-?-?-?- GP - no cramping or bleeding. Discussed COVID vaccine in . 09/02/20 -?-?-?-?-?-?-?-?-?-?-?-?- 22w 3d 200 lb 128/78 Negative -?-?-?-?-?-?-?-?-?-?-?-?- Negative 150 -?-?-?-?-?-?-?-?-?-?-?-?- GP - no ctx, LOF , VB, DFM. US shows previa. Plan repeat scan at 28 weeks. Reviewed previa precautions. Handouts provided. 09/19/20 -?-?-?-?-?-?-?-?-?-?-?-?- 24w 6d 199 lb 8 oz 112/60 Nega tive -?-?-?-?-?-?-?-?-?-?-?-?- Negative 147 24 -?-?-?-?-?-?-?-?-?-?-?-?- -No Vb, LOF. G ood FM. -No Vb, LOF. Good FM. Not ed previa-rpt US scheduled. Pelvic rest. 10/11/20 -?-?-?-?-?-?-?-?-?-?-?-?- 28w 0d 202 lb 6 oz 108/60 Trac e -?-?-?-?-?-?-?-?-?-?-?-?- Negative 158 27 -?-?-?-?-?-?-?-?-?-?-?-?- MH-No VB, LOF. U S today. Good FM. 28 wk labs WNL. 11/04/20 -?-?-?-?-?-?-?-?-?-?-?-?- 31w 3d 204 lb 116/60 Negative -?-?-?-?-?-?-?-?-?-?-?-?- Negative 150 32 31 -?-?-?-?-?-?-?-?-?-?-?-?- SM- no vb lof go od fm no regular ctx 11/18/20 -?-?-?-?-?-?-?-?-?-?-?-?- 33w 3d 206 lb 134/66 Negative -?-?-?-?-?-?-?-?-?-?-?-?- Negative 130 33 -?-?-?-?-?-?-?-?-?-?-?-?- GP - no LOF, VB, DFM, ctx. Having a girl! Had severe hemorrhoids while on vacation, but no longer having pain. 12/05/20 -?-?-?-?-?-?-?-?-?-?-?-?- 35w 6d 209 lb 112/62 -?-?-?--?-?-?-?-?-?-?-?-?- 130 36 Cephalic -?-?-?-?-?-?-?-?-?-?-?-?- SM- no vb lof go od fm no regular ctx 12/13/20 -?-?-?-?-?-?-?-?-?-?-?-?- 37w 0d 212 lb 8 oz 118/66 Nega tive -?-?-?-?-?-?-?-?-?-?-?-?- Negative 130 37 Cephalic 2 -?-?-?-?-?-?-?-?-?-?-?-?- 20 -3 SM- no vb lof good fm no rgular ctx gbs today 12/21/20 -?-?-?-?-?-?-?-?-?-?-?-?- 38w 1d 214 lb 6 oz 108/60 Trac e -?-?-?-?-?-?-?-?-?-?-?-?- Negative 130 38 Cephalic 2 -?-?-?-?-?-?-?-?-?-?-?-?- 50 -2 GP - no LO F, VB, DFM, ctx. GBS negative. 12/25/20 -?-?-?-?-?-?-?-?-?-?-?-?- 38w 5d 216 lb 12.8 oz 132/7 8 128/72 124/60 -?-?-?-?-?-?-?-?-?-?-?-?- -?-?-?-?-?-?-?-?-?-?-?-?- NST FHR Rate Baby A Baseline: 130 Variability:: Moderate Accelerations:: 15 x 15 Decelerations:: Variable (Occasional) FHR Category:: Category II Uterine Activity:: Difficulty tracing ROS Eyes Eyes: Reports systems reviewed and no addt'l complaints, except as documented ENT HEENT: Reports systems reviewed and no addt'l complaints, except as documented Cardiovascular Cardiovascular: Reports systems reviewed and no addt'l complaints, except as documented Respiratory/Chest Respiratory/Chest: Reports systems reviewed and no addt'l complaints, except as documented Gastrointestinal Gastrointestinal: Reports systems reviewed and no addt'l complaints, except as documented Genitourinary Genitourinary: Reports systems reviewed and no addt'l complaints, except as documented Musculoskeletal Musculoskeletal: Reports systems reviewed and no addt'l complaints, except as documented Integumentary Integumentary: Reports systems reviewed and no addt'l complaints, except as documented Neurologic Neurologic: Reports systems reviewed and no addt'l complaints, except as documented Psychiatric Psychiatric: Reports systems reviewed and no addt'l complaints, except as documented Endocrine Endocrinology: Reports systems reviewed and no addt'l complaints, except as documented Hematologic/Lymphatic Hematologic/Lymphatic: Reports systems reviewed and no addt'l complaints, except as documented Allergic/Immunologic Allergic/Immunologic: Reports systems reviewed and no addt'l complaints, except as documented Vital Signs Vital Signs Vital Signs: 12/25/20 23:03 12/26/20 00:34 12/26/20 00:57 Temperature 99.0 F Temperature Source Temporal Pulse Rate 85 77 65 Blood Pressure 132/78 H 128/72 H BP Systolic 132 128 BP Diastolic 78 72 Pulse Ox 99 100 99 12/26/20 01:02 Temperature Temperature Source Pulse Rate 78 Blood Pressure BP Systolic BP Diastolic Pulse Ox 99 Weight Weight: 216 lb 12.8 oz Body Mass Index (BMI) 32.0 Physical Exam Const alert, oriented x3, no apparent distress, average body habitus, healthy appearing and well nourished HEENT normocephalic and moist oral mucous membranes Head and Scalp: atraumatic Eyes PERRL and EOMs intact bilaterally Neck full ROM Resp normal respiratory effort, no retractions and no use of accessory muscles Cardio regular rate and regular rhythm GI soft to palpation, non-tender and non-distended Extremity normal to inspection and full ROM Skin no rashes or lesions noted Neuro no focal motor deficits and no sensory deficits noted Psych mental status grossly normal, affect normal, speech normal and activity/motor behavior normal Labs Labs Labs: Blood Type A POSITIVE Antibody Screen NEGATIVE Hct 39.2 % (37-47) Hgb 12.9 g/dL (12.0-15.0) Pap Smear Negative Obstetrics US Rubella IgG Antibody Reactive (Nonreactive) Hep Bs Antigen Non-Reactive (Nonreactive) Neisseria gonorrhoeae DNA (PIETRO) Negative (Negative) HIV 1&2 Antibody Non-Reactive (Nonreactive) C.trachomatis DNA (PCR) Negative (Negative) Glucose 1 Hr 50 gm 92 mg/dL (70-140) Rhogam given: No Assessment & Plan (1) : QUALIFIERS: Weeks of gestation: 38 weeks Qualified Code(s): Z3A.38 - 38 weeks gestation of COMMENT: declines genetic, carrier and NTD. nl anatomy. GBS neg PLAN: Patient presents IAL, plan expectant management for , pitocin PRN if needed. Pain management: plans epidural. GBS positive plan IV PCN. Management of any complications: none I have reviewed the [facility] and made any clinically relevant updates. (2) Supervision of other normal : COMMENT: PRR MARLON 01/03/21 surprise PC: Alina Spouse: [place] (3) COVID-19 vaccine administered: COMMENT: august (4) Active labor at term:
[2020-12-26] MEDS: Mag Hydrox/Al Hydrox/Simeth 30 ML UDC PO (01:35)
[2020-12-26] MEDS: Oxytocin 30 units/NS 500 ml 30 UNITS/500 ML IV.SOLN IV (03:02)
[2020-12-26] MEDS: fentaNYL-bupivacaine (epidural) 100 ML BAG EPIDURAL (05:38)
[2020-12-26] MEDS: Lactated Ringers 1,000 ML 200 ML IV (06:26)
[2020-12-26] MEDS: Oxytocin 30 units/NS 500 ml 30 UNITS/500 ML IV.SOLN 334 UNITS IV (08:38)
--- NOTE | 2020-12-26 08:48 | EX.PCM.OBRPT ---
Maternal Data Information MARLON Calculator Estimated Delivery Date Method Current Current Estimate 01/03/21 LMP (Certain) 38w 6d Other Estimates 01/04/21 Ultrasound #1 38w 5d Vaginal Delivery Operative Information Pre-Operative Diagnosis: IAL Post-Operative Diagnosis: same Surgery / Procedure Performed: Spontaneous Vaginal Delivery Type of Anesthesia: Epidural Special Medications: none Estimated Blood Loss: 100 Fluids Replaced: crystalloid Findings Description of Procedure: Patient began pushing and delivered the head in the HOSSEIN presentation. The head was delivered atraumatically and a loose nuchal cord ?1 was identified and the delivered through without complication. The anterior and posterior shoulders delivered without complication followed by the rest of the and the was placed on the maternal abdomen. Delayed cord clamping was employed for approximately 60 seconds. Cord was clamped and cut and gentle traction was applied to the cord and the placenta delivered spontaneously immediately following it was noted to be intact with three-vessel cord. The perineum and vagina were inspected and noted to have a first-degree perineal laceration that was repaired in the usual fashion with 3-0 Vicryl Rapide. EBL was 100 cc. Patient and infant tolerated delivery well. Presentation: HOSSEIN Amniotic Membrane Rupture Type: Artificial Amniotic Fluid Description: Clear Placental Delivery Description: Spontaneous Placenta Disposition: [facility] Cord Vessel Description: 3 Vessels Cord Entanglement: Around neck x 1, loose Infant A Gender: Female Delayed Cord Clamping: Yes Post Vaginal Delivery Medications Given After Delivery: IV Pitocin Episiotomy Description: None Laceration: None Complication Complications: None Procedures Urinary/Genital [id number]: [id number] Vaginal Delivery [facility]
--- NOTE | 2020-12-26 08:51 | PCM.DC ---
Documented by User: Dr. Anita Toribio MD 12/26/20 08:52 Discharge Instructions Diet Discharge Diet: No restrictions Activity Discharge Activity: Return to Normal Activity, May Not Drive (while taking narcotic pain medications.) and May Shower May resume sexual activity in: 4-6 weeks Dressing / Incision Call your doctor if your incision/area has: Continuous Slow Oozing, Sudden Increased Bleeding, Increased Pain/ Swelling, Increased Redness and Foul Smelling Discharge Follow Up Care Please Follow Up With: Anita Toribio MD When: Call [phone] to make an appointment with your doctor in 6 weeks. If you had elevated blood pressure or 4th degree laceration, you will need to be seen in 2 weeks. Test Results: Test results from this visit will be discussed in further detail at your follow-up appointment, if applicable. Discharge Plan Admission Admit Date/Time: 12/25/20 22:55 Primary Reason for Your Visit: vaginal delivery Attending Provider: Anita Toribio Primary Care Provider: Prema Van Discharge Orders/Prescriptions Prescriptions: New ibuprofen [ibuprofen] 600 MG tablet 600 mg PO Q6H PRN PRN (Reason: Pain) Qty: 30 RF: 0 Continued prenat.vits,frederick,byd-reqh-tdweg tablet 1 tab PO QDAY RF: 0 docusate sodium [Colace] 100 mg Capsule 100 mg PO DAILY RF: 0 Referrals / Follow Up: Prema Van PA-C [Primary Care Provider] - Documented by User: BRIAN Orr NPC 12/27/20 07:58 Discharge Plan Admission Admit Date/Time: 12/25/20 22:55 Primary Reason for Your Visit: vaginal delivery Attending Provider: Anita Toribio Primary Care Provider: Prema Van Discharge Orders/Prescriptions Prescriptions: New ibuprofen [ibuprofen] 600 MG tablet 600 mg PO Q6H PRN PRN (Reason: Pain) Qty: 30 RF: 0 Continued prenat.vits,frederick,mcu-iemr-hcrow tablet 1 tab PO QDAY RF: 0 docusate sodium [Colace] 100 mg Capsule 100 mg PO DAILY RF: 0 Referrals / Follow Up: Prema Van PA-C [Primary Care Provider] -
[2020-12-26] MEDS: Prenatal Vits Tablet 1 TABLET PO (15:58)
[2020-12-26] MEDS: Docusate Sodium 100 MG Capsule PO (16:09)
[2020-12-26] MEDS: Dibucaine 30 GM Tube 1 APPLIC TOPICAL (23:41)
[2020-12-27 04:15] VITALS: BP 125/79; PULSE 81
[2020-12-27 04:30] VITALS: BP 125/79; PULSE 79; RESP 16; TEMP 36.4; O2SAT 97
--- NOTE | 2020-12-27 07:57 | PCM.PN.OB ---
Subjective Subjective Patient doing well without complaints. Tolerating PO. Ambulating and voiding without difficulty. Breast feeding well. Denies chest pain, shortness of breath, calf pain/swelling, fevers, chills, lightheadedness. Objective Data Objective Data Vital Signs: Vital Signs Temp Pulse Resp BP Pulse Ox 97.5 F L 79 16 125/79 H 97 12/27/20 04:30 12/27/20 04:30 12/27/20 04:30 12/27/20 04:30 12/27/20 04:30 Oxygen Delivery Method Room Air Weight: 216 lb 12.8 oz Body Mass Index (BMI) 32.0 Intake & Output: Intake and Output for Last 24 Hours 12/25/20 12/26/20 12/27/20 23:59 23:59 23:59 Intake Total 4745.46 / 4745.46 Output Total 3900 / 3900 Balance 845.46 / 845.46 Lab / Micro Data Result Diagrams: 12/25/20 23:05 Physical Exam Const alert and oriented x3 HEENT normocephalic Eyes PERRL Neck full ROM Resp normal respiratory effort GI soft to palpation GI Narrative: FF below U Assessment & Plan (1) Vaginal delivery: COMMENT: SM 40 girl IAL PLAN: s/p PPD # 1 1. routine post delivery care 2. breast feeding- support given 3. rh positive 4. rubella immune 5. home today
[2020-12-27 08:33] VITALS: BP 129/81; PULSE 78; RESP 16; TEMP 36.8
[2020-12-27] MEDS: Docusate Sodium 100 MG Capsule PO (08:46)
[2020-12-27] MEDS: Naproxen 500 MG Tablet PO (08:46)
[2020-12-27] MEDS: Prenatal Vits Tablet 1 TABLET PO (08:46)
[2020-12-27 12:09] VITALS: BP 128/78; PULSE 69; RESP 16; TEMP 36.5
== END 2020-12-27 12:50 | disposition home or self-care (01) | DRG 807 ==
LOC: WPOUT 23:01 → WP 23:01
PROVIDERS: Obstetrics & Gynecology; Admitting Provider Obstetrics & Gynecology; PCP Family Medicine; Visit Provider Obstetrics & Gynecology
DX: O98.82 Other maternal infectious and parasitic diseases complicating childbirth (principal); Z37.0 Single live birth; B95.1 Streptococcus, group B, as the cause of diseases classified elsewhere; O69.81X0 Labor and delivery complicated by cord around neck, without compression, not applicable or unspecified; O70.0 First degree perineal laceration during delivery; Z3A.38 38 weeks gestation of pregnancy
CPT/HCPCS: 59025; 59050; 85025; 86850; 86900; 86901; 99218; J7120; G0378

== ENCOUNTER → 2021-02-09 | Outpatient (CLI) | payer BC, SELFPAY ==
[2021-02-09 14:23] VITALS: BMI 32.0
[2021-02-14 16:37] LABS: HPV Reflexed? NOT INDICATED
== END | disposition home or self-care (01) ==
PROVIDERS: PCP Family Medicine; Referring Provider Obstetrics & Gynecology; Visit Provider Obstetrics & Gynecology
DX: Z12.4 Encounter for screening for malignant neoplasm of cervix (principal)
CPT/HCPCS: 88175; G0145

== ENCOUNTER → 2021-06-09 09:51 | Outpatient (CLI) | payer BC, SELFPAY ==
[2021-06-09 11:09] LABS: NATERA MAILED SPECIMEN
== END ==
PROVIDERS: PCP Family Medicine; Visit Provider Obstetrics & Gynecology
DX: Z80.3 Family history of malignant neoplasm of breast (principal)
CPT/HCPCS: 36415

== ENCOUNTER → 2023-08-05 | Outpatient (CLI) | payer BC, SELFPAY ==
--- NOTE | 2023-08-05 07:16 | BI_ITS ---
MAMMOGRAPHY - BILATERAL SCREENING REASON FOR EXAM: Female, 32 years old. Routine annual screening examination. PERTINENT HISTORY: Mother with breast cancer. Grandmother with breast cancer. TECHNIQUE: Digital bilateral breast aliya (3D mammographic acquisition) in the CC and MLO projections. 2-D mediolateral oblique (MLO) and craniocaudad (CC) views of both breasts were obtained. CAD: Full Field Digital Mammography with Computer Added Detection was performed. COMPARISON: None. Baseline examination. FINDINGS: Breast Composition: The breasts are extremely dense, which lowers the sensitivity of mammography. There are no dominant masses or suspicious calcifications. No other significant abnormalities are identified. BI/SCRN MAMM (CAD)W/ALIYA BILAT IMPRESSION: Negative screening mammogram. Yearly followup mammogram recommended. (A) ASSESSMENT CATEGORY: BIRADS Category 2: Benign. A letter regarding these results will be sent to the patient by the facility within 30 days. Approximately 10% of breast cancers are not detected by mammography. A normal mammogram should not delay biopsy of a clinically suspicious abnormality. [id number] Electronically Signed: Patel Rodas MD at 8:24 EST ,
--- OUTSIDE RECORDS SUMMARY | 2023-08-05 07:22 | XMS RPT_ITS | CCD ---
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 Start: 08-01-2022 Encounter for genera l adult medical examination without abnormal findings LINDA NIXON [facility] Payers Date Payer Category Payer Unknown [id number] Unknown [id number] Summary Purpose Family History No Family History Records FoundNo Family History Records Found Advance Directives No Advanced Directives Records FoundNo Advanced Directives Records Found Additional Source Comments INFORMATION SOURCE (unrecogn ized section and content) DATE CREATED AUTHOR AUTHOR'S ORGANIZ ATION 08/05/2022 [facility] FOR RECORDS PERTAINING TO PATIENTS WHO ARE OR HAVE BEEN ENROLLED IN A CHEMICAL DEPENDENCY/SUBSTANCEABUSE PROGRAM, SOME INFORMATION MAY BE OMITTED. This clinical summary was aggregated from multiple sources. Caution should be exercised in using it in the provision of clinical care. This summary normalizes information from multiple sources, and as a consequence, information in this document may materially change the coding, format and clinical context of patient data. In addition, data may be omitted in some cases. CLINICAL DECISIONS SHOULD BE BASED ON THE PRIMARY CLINICAL RECORDS. [facility] [employer] [facility]. provides no warranty or guarantee of the accuracy or completeness of information in this document.
== END | disposition home or self-care (01) ==
LOC: OPBI 07:16
PROVIDERS: PCP Family Medicine; Referring Provider Nurse Practitioner Women's Health; Visit Provider Nurse Practitioner Women's Health
DX: Z12.31 Encounter for screening mammogram for malignant neoplasm of breast (principal); Z80.3 Family history of malignant neoplasm of breast
CPT/HCPCS: 77063; 77067

== ENCOUNTER → 2025-03-31 | Outpatient (CLI) | payer BC, SELFPAY ==
[2025-03-31 12:18] LABS: Hematocrit 46.4 % (37-47); Hemoglobin 15.4 g/dL (12.0-15.0); Immature Granulocytes Count 0.030 X10^3/uL (0.0-0.0); Mean Corp Hgb Conc 33.2 g/dL (32-36); Mean Corpuscular Volume 93.4 fL (81-99); Mean Platelet Vol. 10.7 fl (6.2-12.0); NRBC Flagged by Analyzer 0 % (0-5); Platelet Count 235 K/mm3 (150-450); RBC Distribution Width CV 12.0 % (11.6-14.6); RBC Distribution Width SD 41.3 fl (35.1-43.9); Red Blood Count 4.97 M/mm3 (4.2-5.4); White Blood Count 7.4 K/mm3 (4.4-11.0)
[2025-03-31 13:18] LABS: AST(SGOT) 54 U/L (<=31); Alanine Aminotransfer ALT/SGPT 48 U/L (<=34); Albumin, Serum 4.8 g/dL (3.5-5.0); Alkaline Phosphatase 58 U/L (35-104); Anion Gap 13 (5-15); BUN 21 mg/dL (4-19); BUN/Creat Ratio 19.3 RATIO (10-20); CORTISOL AM 9.86 ug/dL (6.02-18.40); Calcium,Total 9.8 mg/dL (7.6-11.0); Carbon Dioxide 24.8 mmol/L (21.0-32.0); Chloride 102 mmol/L (98-108); Cholesterol 143 mg/dL (<=200); Globulin 2.6 g/dL (2.2-4.2); Glucose 84 mg/dL (70-99); Low Density Lipoprotein Calc. 74 mg/dL; Potassium 3.8 mmol/L (3.3-5.1); Triglycerides 46 mg/dL; Very Low Density Lipoprotein 9 mg/dL (5-40); Vitamin D,25 Hydroxy 59.3 ng/mL (30-100); cholesterol:hdl ratio screen 2.38
== END | disposition home or self-care (01) ==
LOC: BWCLAB 09:44
PROVIDERS: PCP Family Medicine; Referring Provider Nurse Practitioner Women's Health; Visit Provider Nurse Practitioner Women's Health
DX: Z13.220 Encounter for screening for lipoid disorders (principal); R53.83 Other fatigue; Z13.29 Encounter for screening for other suspected endocrine disorder
CPT/HCPCS: 36415; 80053; 80061; 82306; 82533; 83036; 84439; 84443; 85025; 86376

== ENCOUNTER → 2025-05-10 | Outpatient (CLI) | payer BC, SELFPAY ==
--- NOTE | 2025-05-10 08:15 | BI_ITS ---
EXAM: SCRN MAMM (CAD)W/ALIYA BILAT DATE: 05/10/2025 CLINICAL HISTORY: F, Age 34 y/o , SCREEN Patient's mother and grandmother were diagnosed with breast cancer. TECHNIQUE: Procedure Code: [id number] Modality: MG Procedure: SCRN MAMM (CAD)W/ALIYA BILAT COMPARISON: Prior exam(s) dated 08/05/2023. FINDINGS: TISSUE DENSITY: The breasts are extremely dense, which lowers the sensitivity of mammography. Bilateral Breast Mammographic Findings: There are no suspicious masses, suspicious clustered microcalcifications, architectural distortion or secondary signs of malignancy identified in either breast. Benign round microcalcifications are seen in both breasts. BI/SCRN MAMM (CAD)W/ALIYA BILAT IMPRESSION: Benign screening mammogram. OVERALL FINAL ASSESSMENT BI-RADS 2: BENIGN RECOMMENDATION: Routine annual follow-up in 1 Year Additional Recommendation none A letter with findings and recommendations will be mailed to the patient. Reading Location: [id number]
== END | disposition home or self-care (01) ==
LOC: OPBI 08:13
PROVIDERS: PCP Family Medicine; Referring Provider Nurse Practitioner Women's Health; Visit Provider Nurse Practitioner Women's Health
DX: Z12.31 Encounter for screening mammogram for malignant neoplasm of breast (principal)
CPT/HCPCS: 77063; 77067